=== PATIENT | female | born 1990 | race Caucasian/White ===

== ENCOUNTER → 2021-08-20 | Outpatient (CLI) | payer OTHER ==
--- NOTE | 2021-08-20 16:37 | DIREP ---
PROCEDURE:XRAY KNEE 2 VWS-LT COMPARISON:None. INDICATIONS:Encounter for general adult medical examination FINDINGS: BONES:Normal. JOINTS:Normal. SOFT TISSUES:Normal. OTHER:No additional findings. CONCLUSION:Normal examination. Dictated by: Breezy Griffin M.D. on 08/20/2021 at 04:36 PM
--- NOTE | 2021-08-20 16:39 | DIREP ---
PROCEDURE:XRAY SHOULDER MIN 2 VWS-LT COMPARISON:None. INDICATIONS:Encounter for general adult medical examination FINDINGS: BONES:Normal. JOINTS:Normal glenohumeral and acromioclavicular joints. No evidence for dislocation. SOFT TISSUES:Normal. OTHER:Normal. CONCLUSION:Normal examination. Dictated by: Breezy Griffin M.D. on 08/20/2021 at 04:37 PM
--- NOTE | 2021-08-20 16:41 | DIREP ---
PROCEDURE:XRAY SPINE LUMBAR 2-3 VWS COMPARISON:None. INDICATIONS:Encounter for general adult medical examination TECHNIQUE:AP, lateral, and coned down lateral views of the lumbar spine are provided. FINDINGS: ALIGNMENT:Normal. VERTEBRAE:Sacralization of L5 on the right is noted as a normal variant. DISK SPACES:Normal. SPONDYLOLISTHESIS:None. SACROILIAC JOINTS:Normal. OTHER:Surgical clips are seen the right upper quadrant consistent with cholecystectomy. CONCLUSION:Normal examination. Dictated by: Breezy Griffin M.D. on 08/20/2021 at 04:38 PM
== END | disposition home or self-care (01) ==
LOC: RAD 15:21
DX: Z00.00 Encounter for general adult medical examination without abnormal findings (principal)
CPT/HCPCS: 72100; 73030-LT; 73560-LT